=== PATIENT | male | born 1970 | race Caucasian/White ===

== ENCOUNTER 2023-05-09 13:31 | Emergency (ER) | payer OTHER, SELFPAY ==
[2023-05-09 13:40] VITALS: BP 154/90; PULSE 79; RESP 16; TEMP 36.6; O2SAT 97
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
[2023-05-09] MEDS: TETANUS,DIPHTHERIA,AC PERTUSSIS ADULT (0.5 ML) BOOSTRIX IM (16:35)
== END 2023-05-09 16:50 | disposition home or self-care (01) ==
PROVIDERS: Emergency Provider General Practice
DX: S11.92XA Laceration with foreign body of unspecified part of neck, initial encounter (principal); Z23 Encounter for immunization; W25.XXXA Contact with sharp glass, initial encounter; Y92.812 Truck as the place of occurrence of the external cause
CPT/HCPCS: 90471; 90715; 99282